=== PATIENT | female | born 1980 | race Caucasian/White ===

== ENCOUNTER 2017-09-04 23:05 | Emergency (ER) | payer BC ==
[2017-09-04] MEDS ORDERED: Ondansetron 4 MG/2 ML SDV IVPUSH ONE (23:12)
[2017-09-04] MEDS ORDERED: Sodium Chloride 0.9% 1,000 ML IV ONE (23:12)
--- NOTE | 2017-09-04 23:19 | EDM.PDOC ---
ED HPI GENERAL MEDICAL PROBLEM - General Chief Complaint: Abdominal Pain Stated Complaint: PT HAS STOMACH PAIN Time Seen by Provider: 09/04/17 23:19 - History of Present Illness INITIAL COMMENTS - FREE TEXT/NARRATIVE: HISTORY AND PHYSICAL: History of present illness: Patient's proximal with 5 weeks status post da Deyanira laparoscopic hysterectomy who had intercourse tonight and status post intercourse developed some discomfort and vaginal bleeding she states she had no bleeding prior to this she states she was instructed not to have intercourse this early. Review of systems: As per history of present illness and below otherwise all systems reviewed and negative. Past medical history: As per history of present illness and as reviewed below otherwise noncontributory. Surgical history: As per history of present illness and as reviewed below otherwise noncontributory. Social history: No reported history of drug or alcohol abuse. Family history: As per history of present illness and as reviewed below otherwise noncontributory. Physical exam: HEENT: Atraumatic, normocephalic, pupils reactive, negative for conjunctival pallor or scleral icterus, mucous membranes moist, throat clear, neck supple, nontender, trachea midline. Lungs: Clear to auscultation, breath sounds equal bilaterally, chest nontender. Heart: S1S2, regular, negative for clicks, rubs, or JVD. Abdomen: Soft, nondistended, nontender. Negative for masses or hepatosplenomegaly. Negative for costovertebral tenderness. Pelvis: Stable nontender. Genitourinary: Deferred. Rectal: Deferred. Extremities: Atraumatic, negative for cords or calf pain. Neurovascular unremarkable. Neuro: Awake, alert, oriented. Cranial nerves II through XII unremarkable. Cerebellum unremarkable. Motor and sensory unremarkable throughout. Exam nonfocal. Diagnostics: CBC CMP CT abdomen and pelvis Therapeutics: None Impression: #1 5 weeks status post da Deyanira hysterectomy #2 postcoital vaginal bleeding Definitive disposition and diagnosis as appropriate pending reevaluation and review of above. - Related Data Allergies Allergy/AdvReac Type Severity Reaction Status Date / Time ketorolac Allergy Nausea Verified 09/04/17 23:10 ketorolac tromethamine Allergy Other Verified 09/04/17 23:10 [From Toradol] Home Meds: Home Meds Adalimumab [Humira Crohn's] 40 mg SQ ASDIRECTED 09/04/17 [History] Folic Acid 1 mg PO DAILY 09/04/17 [History] Levothyroxine [Synthroid] 50 mcg PO ACBREAKFAST 09/04/17 [History] ED ROS GENERAL - Review of Systems Review Of Systems: ROS reveals no pertinent complaints other than HPI. 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 for who agrees with discharge home strict pelvic rest pain medication follow-up on Wednesday Last Recorded V/S: Last Vital Signs Temp 36.6 C 09/04/17 23:05 Pulse 93 09/04/17 23:05 Resp 18 09/04/17 23:05 BP 133/85 09/04/17 23:05 Pulse Ox 98 09/04/17 23:05 - Orders/Labs/Meds Orders: Active Orders 24 hr Category Date Time Status Abdomen Pelvis wo Cont [CT] Stat Exams 09/04/17 23:12 Taken Labs: Laboratory Tests 09/04/17 09/04/17 Range/Units 23:53 23:53 WBC 8.96 (4.0-11.0) K/uL RBC 4.46 (4.30-5.90) M/uL Hgb 13.1 (12.0-16.0) g/dL Hct 38.0 (36.0-46.0) % MCV 85.2 (80.0-98.0) fL MCH 29.4 (27.0-32.0) pg MCHC 34.5 (31.0-37.0) g/dL RDW Std Deviation 38.2 (28.0-62.0) fl RDW Coeff of Brandie 12 (11.0-15.0) % Plt Count 232 (150-400) K/uL MPV 9.70 (7.40-12.00) fL Neut % (Auto) 72.8 (48.0-80.0) % Lymph % (Auto) 19.8 (16.0-40.0) % [place] % (Auto) 4.8 (0.0-15.0) % Eos % (Auto) 2.2 (0.0-7.0) % Baso % (Auto) 0.4 (0.0-1.5) % Neut # (Auto) 6.5 H (1.4-5.7) K/uL Lymph # (Auto) 1.8 (0.6-2.4) K/uL [place] # (Auto) 0.4 (0.0-0.8) K/uL Eos # (Auto) 0.2 (0.0-0.7) K/uL Baso # (Auto) 0.0 (0.0-0.1) K/uL Nucleated RBC % 0.0 /100WBC Nucleated RBCs # 0 K/uL Sodium 141 (136-146) mmol/L Potassium 3.7 (3.5-5.1) mmol/L Chloride 110 (98-110) mmol/L Carbon Dioxide 21 (21-31) mmol/L BUN 16 (6.0-23.0) mg/dL Creatinine 1.0 (0.6-1.5) mg/dL Est Cr Clr Drug Dosing TNP Estimated GFR (MDRD) > 60.0 ml/min Glucose 97 (60-110) mg/dL Calcium 9.4 (8.8-10.8) mg/dL Total Bilirubin 0.3 (0.1-1.5) mg/dL AST 22 (5-40) IU/L ALT 21 (8-54) IU/L Alkaline Phosphatase 98 (40-150) Total Protein 7.7 (6.0-8.0) g/dL Albumin 4.2 (3.5-5.0) g/dL Globulin 3.5 (2.0-3.5) g/dL Albumin/Globulin Ratio 1.2 L (1.3-2.8) Meds: Medications Discontinued Medications Generic Name Dose Route Start Last Admin Trade Name Masoodq PRN Reason Stop Dose Admin Sodium Chloride 1,000 mls @ 999 mls/hr 09/04/17 23:12 09/04/17 23:54 Normal Saline IV 09/05/17 00:12 999 mls/hr .Bolus ONE Administration Ondansetron HCl 4 mg 09/04/17 23:12 09/04/17 23:55 Zofran IVPUSH 09/04/17 23:13 4 mg ONETIME ONE Administration Departure - Departure Time of Disposition: 01:20 Disposition: Home, Self-Care 01 Condition: Good Clinical Impression: Vaginal bleeding, Postoperative hemorrhage from incision - Discharge Information Referrals: PCP,None [Primary Care Provider] - Forms: ED Department Discharge Additional Instructions: The following information is given to patients seen in the emergency department who are being discharged to home. This information is to outline your options for follow-up care. We provide all patients seen in our emergency department with a follow-up referral. The need for follow-up, as well as the timing and circumstances, are variable depending upon the specifics of your emergency department visit. If you don't have a primary care physician on staff, we will provide you with a referral. We always advise you to contact your personal physician following an emergency department visit to inform them of the circumstance of the visit and for follow-up with them and/or the need for any referrals to a consulting specialist. The emergency department will also refer you to a specialist when appropriate. This referral assures that you have the opportunity for followup care with a specialist. All of these measure are taken in an effort to provide you with optimal care, which includes your followup. Under all circumstances we always encourage you to contact your private physician who remains a resource for coordinating your care. When calling for followup care, please make the office aware that this follow-up is from your recent emergency room visit. If for any reason you are refused follow-up, please contact the [facility] emergency department at and asked to speak to the emergency department charge nurse. Hydrocodone as prescribed follow-up with ENVIRONMENTAL HEALTH SAFETY MANAGER on Wednesday vaginal rest no intercourse no douche return for bleeding pain as discussed return and as needed as discussed - My Orders Last 24 Hours: My Active Orders 09/04/17 23:12 Abdomen Pelvis wo Cont [CT] Stat - Assessment/Plan Last 24 Hours: My Active Orders 09/04/17 23:12 Abdomen Pelvis wo Cont [CT] Stat
[2017-09-05 00:31] LABS: CHLORIDE,CL 110 mmol/L (98-110); SODIUM,NA 141 mmol/L (136-146)
[2017-09-05 03:00] VITALS: BP 106/71
--- NOTE | 2017-09-06 10:25 | CT ---
EXAM DATE: 09/04/17 PATIENT'S AGE: 37 Patient: TASHA FELIZ Facility: [place], [place] Site . Site : [id number] Study: CT Abdomen/Pelvis [id number]/5/2017 1:18:05 AM Ordering Physician: Esther Haro Final Report: INDICATION: Pelvic pain, vaginal bleeding, history of hysterectomy June 27, 2017, patient was having intercourse prior to onset of symptoms. TECHNIQUE: CT abdomen and pelvis without contrast. COMPARISON: None FINDINGS: Lower chest: Unremarkable. Liver: Unremarkable. Spleen: Unremarkable. Pancreas: Unremarkable. Gallbladder and bile ducts: Status post cholecystectomy. Adrenal glands: Unremarkable. Kidneys: Unremarkable. No kidney or ureteral stones and no hydronephrosis. GI tract: Unremarkable. Appendix is normal. Vascular structures: Unremarkable. Lymph nodes: Unremarkable. Miscellaneous: Unremarkable. No free air or significant free fluid. Pelvic Organs: Status post hysterectomy. Small amount of hemorrhage in the dependent portion of the pelvis. Bones: Unremarkable for age. IMPRESSION: Small amount of acute hemorrhage in the dependent portion of the pelvis. Findings are concerning for error rupture of the vaginal cuff. These findings were discussed with Dr. Santana at 1:29 a.m. on September 05, 2017. Please note that all CT scans at this facility use dose modulation, iterative reconstruction, and/or weight-based dosing when appropriate to reduce radiation dose to as low as reasonably achievable. Dictated by Dina Damon MD @ Sep 05 2017 1:29AM (Electronic Signature) Report Signed by Proxy. [facility] HOSPITALCristopher
== END 2017-09-05 01:59 | disposition home or self-care (01) ==
LOC: MW.ED 23:05
DX: N93.0 Postcoital and contact bleeding (principal); Z88.6 Allergy status to analgesic agent; Z79.899 Other long term (current) drug therapy; Z90.710 Acquired absence of both cervix and uterus
CPT/HCPCS: 74176; 80053; 85025; 96361; 96374; 99284; J2405; J7040; 99282